=== PATIENT | female | born 1965 | race Hispanic/Latino ===

== ENCOUNTER 2023-05-14 09:13 | Emergency (ER) | payer SELFPAY ==
[~2023-05-14] VITALS: Ht 152.4 cm; Wt 69.9 kg
[2023-05-14] MEDS ORDERED: LISINOPRIL5 MG PO (09:38)
[2023-05-14] MEDS ORDERED: LEVEMIR100 UNIT/1 (09:38)
[2023-05-14] MEDS ORDERED: METFORMIN HCL500 M2 PO (09:38)
[2023-05-14] MEDS ORDERED: CLONIDINE HCL 0.1 MG TAB PO ONE (09:45)
[2023-05-14] MEDS ORDERED: IBUPROFEN 600 MG TAB PO ONE (09:45)
[2023-05-14] MEDS ORDERED: TYLENOL325 MG PO (10:06)
[2023-05-14] MEDS ORDERED: KETOROLAC TROME10 MG PO (10:06)
[2023-05-14] MEDS ORDERED: CLONIDINE HCL 0.1 MG TAB ONE (10:06)
[2023-05-14] MEDS ORDERED: IBUPROFEN 600 MG TAB ONE (10:08)
[2023-05-14 10:23] VITALS: O2SAT 96
== END 2023-05-14 10:23 | disposition home or self-care (01) ==
LOC: FSED 09:23
DX: S20.211A Contusion of right front wall of thorax, initial encounter (principal); S40.011A Contusion of right shoulder, initial encounter; W17.89XA Other fall from one level to another, initial encounter; Y99.0 Civilian activity done for income or pay; I10 Essential (primary) hypertension; E11.9 Type 2 diabetes mellitus without complications
CPT/HCPCS: 71101; 99283